=== PATIENT | female | born 1970 | race Caucasian/White ===

== ENCOUNTER 2017-05-19 23:31 | Emergency (ER) | payer BC ==
[~2017-05-19] VITALS: Ht 162.6 cm; Wt 87.8 kg
[~2017-05-19 23:31] MED LIST: BENA20 PO; BENT20TA PO; HYDR-3129 PO; HYDR-3533 PO; METO50TA PO; PROM25SU8 PO
[2017-05-19 23:45] VITALS: BP 117/93; PULSE 111; RESP 20; TEMP 98; O2SAT 97
== END 2017-05-20 00:50 | disposition left against medical advice (07) ==
LOC: PHED 23:31
DX: R10.9 Unspecified abdominal pain (principal); R11.10 Vomiting, unspecified
CPT/HCPCS: 99281

== ENCOUNTER 2017-05-22 09:53 | Emergency (ER) | payer BC ==
[~2017-05-22] VITALS: Ht 162.6 cm; Wt 88.0 kg
[2017-05-22 10:00] VITALS: BP 123/89; PULSE 97; RESP 14; TEMP 97.5; O2SAT 95
[2017-05-22] MEDS ORDERED: FISH1000 PO (10:23)
[2017-05-22] MEDS ORDERED: HYDR-3288 PO (10:23)
[2017-05-22] MEDS ORDERED: FURO1TAB62 PO (10:23)
[2017-05-22] MEDS ORDERED: DICY10 PO (10:23)
[2017-05-22] MEDS ORDERED: METO-309 PO (10:23)
--- NOTE | 2017-05-22 10:45 | PD ---
HPI Chief Complaint: Musculoskeletal Complaint Time Seen by Provider: 10:33 Travel History International Travel<30 days: No Contact w/Intl Traveler<30days: No Traveled to known affect area: No History of Present Illness HPI This 47-year-old female says she went to stand up this morning. She had tingling in her legs and she says her legs would not support her and she fell to the ground injuring her right leg. She says the feeling is coming back into her legs. She has a history of back pain with sciatica. Occasional tingling in her legs when she sits for a while. The sensation has returned to her legs. She is having pain in the right knee ankle and foot. She did not hit her head PFSH Past Medical History Anxiety: Yes Heart Rhythm Problems: Yes (HIGH HEART RATE) Cancer: No Cardiovascular Problems: Yes High Cholesterol: Yes Diminished Hearing: No Gastrointestinal Disorders: No GERD: Yes Genitourinary: No Headaches: Yes Hypertension: Yes Implanted Vascular Access Dvce: No Kidney Stones: Yes Musculoskeletal: No Neurologic: Yes Psychiatric: No Reproductive: No Respiratory: Yes Migraines: Yes Pneumonia: Yes Triglycerides - High: Yes Ulcer: Yes (GASTRIC) Tetanus Vaccination: Unknown Influenza Vaccination: No ?: Not : 1 Para: 1 Past Surgical History Abdominal Surgery: Yes (LAP BAND: 2005) Cardiac Surgery: Yes (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) Cholecystectomy: Yes (2011) Ear Surgery: No Endocrine Surgery: No Eye Surgery: No Genitourinary Surgery: No Gynecologic Surgery: Yes Hysterectomy: Yes Neurologic Surgery: No Oral Surgery: No Thoracic Surgery: No Tonsillectomy: Yes Other Surgery: Yes Social History Alcohol Use: No Tobacco Use: Yes (2 ppd) Substance Use: No Allergies-Medications (Allergen,Severity, Reaction): Coded Allergies: Tylenol #3 (Unverified Allergy, Intermediate, HEADACHE, 08/05/16) Morphine (Unverified Allergy, Mild, HEADACHE, 08/05/16) Penicillin (Verified Allergy, Unknown, THROAT CLOSES, 08/05/16) Reported Meds & Prescriptions Reported Meds & Active Scripts Active Reported Fish Oil ([place]-3 Fatty Acids) 1,000 Mg Cap 6,000 Mg PO DAILY Lopressor (Metoprolol Tartrate) 50 Mg Tab 50 Mg PO BID [place] (Hydrocodone-Acetaminophen) 7.5-325 mg Tab 1 Tab PO Q4H PRN Lasix (Furosemide) 20 Mg Tab 20 Mg PO TID Bentyl (Dicyclomine HCl) 10 Mg Cap 20 Mg PO BID Review of Systems General / Constitutional: No: Fever, Chills Eyes: No: Diploplia, Blurred Vision HENT: No: Headaches, Vertigo Cardiovascular: No: Chest Pain or Discomfort, Palpitations Respiratory: No: Cough, Shortness of Breath Gastrointestinal: No: Nausea, Vomiting Genitourinary: No: Urgency, Frequency Musculoskeletal: Positive: Myalgias, Arthralgias, Pain Skin: No Rash, No Itching Neurologic: Positive: Weakness, No: Dizziness Physical Exam Narrative GENERAL: [-] SKIN: Focused skin assessment warm/dry. HEAD: Atraumatic. Normocephalic. EYES: Pupils equal and round. No scleral icterus. No injection or drainage. ENT: No nasal bleeding or discharge. Mucous membranes pink and moist. NECK: Trachea midline. No JVD. GASTROINTESTINAL: Abdomen soft, non-tender, nondistended. Hepatic and splenic margins not palpable. MUSCULOSKELETAL: No obvious deformities. No clubbing. No cyanosis. No edema. There is tenderness of the knee. There is no obvious effusion. There is no instability noted. There is tenderness of the lateral aspect of the ankle and also the dorsum of the foot. There is some ecchymosis in this area and swelling. Dorsalis pedal pulses normal. There is good strength in the left foot NEUROLOGICAL: Awake and alert. No obvious cranial nerve deficits. Motor grossly within normal limits. Normal speech. PSYCHIATRIC: Appropriate mood and affect; insight and judgment normal. Data Data Last Documented VS Vital Signs Date Time Temp Pulse Resp B/P Pulse Ox O2 Delivery O2 Flow Rate FiO2 05/22/17 10:00 97.5 97 14 123/89 95 Room Air Orders Ankle, Complete ([id number]) (05/22/17 10:42) Foot, Complete ([id number]) (05/22/17 10:42) Knee, Complete (4vws) (05/22/17 10:42) Acetamin-Hydrocod 325-5 Mg ([place] 5-325 (05/22/17 12:00) Ondansetron Odt (Zofran Odt) (05/22/17 12:00) Splint Or Brace Apply/Monitor (05/22/17 11:52) Crutches (05/22/17 11:52) MDM Medical Decision Making Medical Screen Exam Complete: Yes Emergency Medical Condition: Yes Medical Record Reviewed: Yes Differential Diagnosis Differential includes contusion, fracture. Patient had weakness of the legs which has resolved. Both legs were weak and had tingling. There is no evidence of weakness or poor circulation now Narrative Course X-rays of the knee and ankle and foot are negative. Impression is multiple contusions Diagnosis Primary Impression: Foot sprain Qualified Code: S93.601A - Foot sprain, right, initial encounter Additional Impressions: Ankle sprain Qualified Code: S93.431A - Sprain of tibiofibular ligament of right ankle, initial encounter Contusion of knee Qualified Code: S80.01XA - Contusion of right knee, initial encounter Additional Instructions: Use crutches, avoid weightbearing, follow-up with orthopedic Scripts Ondansetron Odt (Zofran Odt)4 Mg Tab4 Mg SL Q6HR PRN (Nausea/Vomiting) #10 TAB Ref 0 Prov:Ok Go MD 05/22/17 Hydrocodone-Acetaminophen (Lortab)7.5-325 Mg Tab1 Tab PO Q4H PRN (PAIN) #20 TAB Ref 0 Prov:Ok Go MD 05/22/17 Disposition: 01 DISCHARGE HOME Condition: Stable Ok Go MD May 22, 2017 10:45
--- NOTE | 2017-05-22 11:25 | RADRPT ---
EXAM DATE/TIME: 05/22/2017 11:04 [facility] COMPARISON: No previous studies available for comparison. INDICATIONS : Right foot pain after falling MEDICAL HISTORY : None. SURGICAL HISTORY : None. ENCOUNTER: Initial ACUITY: 1 day PAIN SCORE: 10/10 LOCATION: Right lateral foot FINDINGS: Three view examination of the right foot demonstrates no soft tissue swelling, dislocation, or fractu re. The tarsal bones appear intact. The interphalangeal and metatarsophalangeal joints are intact. The calcaneus is intact. Bony mineralization is normal. CONCLUSION: Unremarkable examination of the right foot. Félix Blas MD on May 22, 2017 at 11:23 Board Certified Radiologist. This report was verified electronically.
--- NOTE | 2017-05-22 11:26 | RADRPT ---
EXAM DATE/TIME: 05/22/2017 11:06 [facility] COMPARISON: No previous studies available for comparison. INDICATIONS : Right ankle pain after falling MEDICAL HISTORY : None. SURGICAL HISTORY : None. ENCOUNTER: Initial ACUITY: 1 day PAIN SCORE: 10/10 LOCATION: Right lateral ankle FINDINGS: Three view exam was performed of the right ankle. The bony structures are in normal alignment. No e vidence of fracture, dislocation, or soft tissue swelling. The ankle mortise is intact. No radiopaq ue foreign bodies are seen. Bony mineralization is normal. CONCLUSION: Unremarkable examination of the right ankle. Félix Blas MD on May 22, 2017 at 11:24 Board Certified Radiologist. This report was verified electronically.
--- NOTE | 2017-05-22 11:26 | RADRPT ---
EXAM DATE/TIME: 05/22/2017 11:09 [facility] COMPARISON: No previous studies available for comparison. INDICATIONS : Right knee pain after falling MEDICAL HISTORY : None. SURGICAL HISTORY : None. ENCOUNTER: Initial ACUITY: 1 day PAIN SCORE: 10/10 LOCATION: Right anterior knee FINDINGS: Four view examination of the right knee demonstrates no evidence of fracture or dislocation. Bony mi neralization is normal. The articular surfaces are intact. The suprapatellar soft tissues have a no rmal configuration. CONCLUSION: Unremarkable examination of the right knee. Félix Blas MD on May 22, 2017 at 11:25 Board Certified Radiologist. This report was verified electronically.
[2017-05-22] MEDS ORDERED: ZOFR4TAB3 SL (12:00)
[2017-05-22] MEDS ORDERED: ACETAMINOPHEN/HYDROcodone 325 MG/5 MG TAB PO ONE (12:00)
[2017-05-22] MEDS ORDERED: ONDANSETRON ODT 4 MG TAB PO ONE (12:00)
[2017-05-22] MEDS ORDERED: HYDR-3534 PO (12:00)
[2017-05-22 12:30] VITALS: RESP 16
== END 2017-05-22 12:33 | disposition home or self-care (01) ==
LOC: PHEFT 09:53
DX: S93.601A Unspecified sprain of right foot, initial encounter (principal); S93.401A Sprain of unspecified ligament of right ankle, initial encounter; S80.01XA Contusion of right knee, initial encounter; W18.30XA Fall on same level, unspecified, initial encounter; Y93.89 Activity, other specified; Y92.9 Unspecified place or not applicable; I10 Essential (primary) hypertension; K21.9 Gastro-esophageal reflux disease without esophagitis; E78.00 Pure hypercholesterolemia, unspecified; Z87.442 Personal history of urinary calculi; Z98.84 Bariatric surgery status
CPT/HCPCS: 73564; 73610; 73630; 99284; E0113

== ENCOUNTER 2017-08-29 02:01 | Emergency (ER) | payer OTHER, BC ==
[~2017-08-29] VITALS: Ht 162.6 cm; Wt 98.7 kg
[~2017-08-29 02:01] MED LIST changes: -BENA20 PO; -BENT20TA PO; +DICY10 PO; +FISH1000 PO; +FURO1TAB62 PO; -HYDR-3129 PO; +HYDR-3288 PO; -HYDR-3533 PO; +HYDR-3534 PO; +METO-309 PO; -METO50TA PO; -PROM25SU8 PO; +ZOFR4TAB3 SL
[2017-08-29 02:03] VITALS: BP 139/86; PULSE 97; RESP 16; TEMP 97.5; O2SAT 99
[2017-08-29] MEDS ORDERED: IBUPROFEN 800 MG TAB PO ONE (02:30)
[2017-08-29] MEDS ORDERED: CYCLOBENZAPRINE HCL 10 MG TAB PO ONE (02:30)
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
[2017-08-29] MEDS ORDERED: SODIUM CHLORIDE 0.9% FLUSH 10 ML FLUSH IV FLUSH PRN (02:45)
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
[2017-08-29 03:06] LABS: AUTOMATED NEUTROPHIL # 3.8 TH/MM3 (1.8-7.7); BASOPHIL # 0.1 TH/MM3 (0-0.2); BASOPHIL % 0.7 % (0.0-2.0); EOSINOPHIL # 0.2 TH/MM3 (0-0.4); EOSINOPHIL % 2.7 % (0.0-4.0); HEMATOCRIT 38.1 % (35.0-46.0); HEMO FLAGS DIFF FINAL; LYMPH % 39.7 % (9.0-44.0); LYMPHOCYTE # 3.2 TH/MM3 (1.0-4.8); MEAN CELL VOLUME 98.2 FL (80.0-100.0); MEAN CORPUSCULAR HEMOGLOBIN 32.9 PG (27.0-34.0); MEAN CORPUSCULAR HGB CONC 33.5 % (32.0-36.0); MONO % 8.5 % (0.0-8.0); NEUT % 48.4 % (16.0-70.0); PLATELET COUNT 278 TH/MM3 (150-450); RED BLOOD COUNT 3.88 MIL/MM3 (4.00-5.30); RED CELL DISTRIBUTION WIDTH 12.9 % (11.6-17.2)
[2017-08-29 03:12] LABS: POTASSIUM 3.7 MEQ/L (3.5-5.1)
[2017-08-29 03:15] LABS: BICARBONATE 28.7 MEQ/L (21.0-32.0)
[2017-08-29] MEDS ORDERED: ONDANSETRON HCL 4 MG/2 ML VIAL IV PUSH ONE ×2 (03:15→04:30)
[2017-08-29 03:44] VITALS: BP 146/85; PULSE 85; RESP 16; O2SAT 99
[2017-08-29] MEDS ORDERED: HYDROmorphone HCL PF 0.5 MG/0.5 ML SYRINGE IV PUSH ONE ×2 (04:00→05:15)
[2017-08-29] MEDS ORDERED: IOHEXOL 350 MG/ML 10 ML VIAL (for RAD DIAG) IVCONTRAST ONE (04:25)
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
[2017-08-29 04:54] VITALS: BP 142/76; PULSE 88; RESP 16; O2SAT 98
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
[2017-08-29 05:38] VITALS: BP_SYST 142; BP_DIAS 76; BP_DIAS 88; PULSE 82; RESP 16; O2SAT 99
== END 2017-08-29 05:42 | disposition home or self-care (01) ==
LOC: PHED 02:01
DX: S09.90XA Unspecified injury of head, initial encounter (principal); S39.012A Strain of muscle, fascia and tendon of lower back, initial encounter; M54.2 Cervicalgia; M54.6 Pain in thoracic spine; M79.605 Pain in left leg; M79.642 Pain in left hand; I10 Essential (primary) hypertension; E78.5 Hyperlipidemia, unspecified; F17.200 Nicotine dependence, unspecified, uncomplicated; V89.2XXA Person injured in unspecified motor-vehicle accident, traffic, initial encounter; Z86.59 Personal history of other mental and behavioral disorders; Z86.79 Personal history of other diseases of the circulatory system; Z87.19 Personal history of other diseases of the digestive system; Z87.442 Personal history of urinary calculi; Z86.69 Personal history of other diseases of the nervous system and sense organs; G43.909 Migraine, unspecified, not intractable, without status migrainosus; D72.829 Elevated white blood cell count, unspecified; R94.31 Abnormal electrocardiogram [ECG] [EKG]; R07.9 Chest pain, unspecified
CPT/HCPCS: 70450; 71010; 71260; 72125; 72128; 72131; 73130; 74177; 80048; 83690; 84484; 85025; 85610; 85730; 93005; 96361; 96365; 96374; 96375; 96376; 99285; J1170; J1885; J2405; J2765; J7030; Q9967

== ENCOUNTER 2017-08-29 18:40 | Emergency (ER) | payer BC ==
[2017-08-29 18:42] VITALS: BP 144/76; PULSE 117; RESP 15; TEMP 97.4; O2SAT 98
== END 2017-08-29 19:26 | disposition left against medical advice (07) ==
LOC: NED 18:40
DX: G43.909 Migraine, unspecified, not intractable, without status migrainosus (principal); Z53.21 Procedure and treatment not carried out due to patient leaving prior to being seen by health care provider
CPT/HCPCS: 99281

== ENCOUNTER 2017-08-29 20:43 | Emergency (ER) | payer BC ==
[~2017-08-29] VITALS: Ht 162.6 cm; Wt 97.0 kg
[2017-08-29 20:50] VITALS: BP_SYST 127; BP_DIAS 79; BP_DIAS 97; PULSE 105; RESP 18; TEMP 98.5; O2SAT 99
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
[2017-08-29 21:10] LABS: AUTOMATED NEUTROPHIL # 11.5 TH/MM3 (1.8-7.7); BASOPHIL # 0.1 TH/MM3 (0-0.2); BASOPHIL % 0.5 % (0.0-2.0); EOSINOPHIL # 0.1 TH/MM3 (0-0.4); HEMOGLOBIN 12.2 GM/DL (11.6-15.3); LYMPH % 12.9 % (9.0-44.0); LYMPHOCYTE # 1.8 TH/MM3 (1.0-4.8); MEAN CELL VOLUME 98.1 FL (80.0-100.0); MEAN CORPUSCULAR HEMOGLOBIN 32.3 PG (27.0-34.0); MEAN PLATELET VOLUME 7.8 FL (7.0-11.0); MONO % 5.2 % (0.0-8.0); MONOCYTE # 0.7 TH/MM3 (0-0.9); NEUT % 80.4 % (16.0-70.0); PLATELET COUNT 286 TH/MM3 (150-450); RED BLOOD COUNT 3.78 MIL/MM3 (4.00-5.30); RED CELL DISTRIBUTION WIDTH 12.8 % (11.6-17.2); WHITE BLOOD COUNT 14.2 TH/MM3 (4.0-11.0)
[2017-08-29] MEDS ORDERED: SODIUM CHLOR 0.9% 1000 ML INJ 1,000 ML IV ONE (21:15)
[2017-08-29] MEDS ORDERED: METOCLOPRAMIDE INJ 10 MG in SODIUM CHLORIDE 0.9% INJ 50 ML IV ONE (21:15)
[2017-08-29] MEDS ORDERED: KETOROLAC TROMETHAMINE 30 MG/ML (IVP) VIAL IV PUSH ONE (21:15)
[2017-08-29 21:18] LABS: CHLORIDE 106 MEQ/L (98-107); SODIUM (NA) 141 MEQ/L (136-145)
[2017-08-29 21:21] LABS: BICARBONATE 27.3 MEQ/L (21.0-32.0); BLOOD UREA NITROGEN 17 MG/DL (7-18); CALCIUM 8.6 MG/DL (8.5-10.1); GLUCOSE,RANDOM 89 MG/DL (74-106); LIPASE 127 U/L (73-393)
[2017-08-29 21:24] LABS: CREATININE 0.62 MG/DL (0.50-1.00); GLOMERULAR FILTRATION RATE 104 ML/MIN (>89); INTERNATIONAL NORMALIZED RATIO 0.9 RATIO
[2017-08-29 21:29] LABS: TROPONIN I LESS THAN 0.02 NG/ML (0.02-0.05)
--- NOTE | 2017-08-29 22:08 | RADRPT ---
EXAM DATE/TIME: 08/29/2017 21:34 [facility] COMPARISON: CHEST PA & LAT, December 08, 2015, 0:54. INDICATIONS : Chest pain. MEDICAL HISTORY : Hypertension. SURGICAL HISTORY : Cholecystectomy. Hysterectomy. Gastric lap band. 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 ENCOUNTER: Initial ACUITY: 1 day PAIN SCORE: 9/10 LOCATION: Bilateral chest FINDINGS: There is slight cardiomegaly and perivascular pulmonary edema. Focal consolidation is not seen. CONCLUSION: Slight CHF. K. Ok Parry MD on August 29, 2017 at 22:06 Board Certified Radiologist. This report was verified electronically.
--- NOTE | 2017-08-29 22:17 | EKG ---
Date Performed: 08/29/2017 Time Performed: 20:49:25 PTAGE: 47 years EKG: SINUS TACHYCARDIA POSSIBLE LEFT ATRIAL ENLARGEMENT LOW QRS VOLTAGE IN PRECORDIAL LEADS INFE RIOR MYOCARDIAL INFARCTION ABNORMAL ECG NO PREVIOUS TRACING DOCTOR: Jah Damon Interpretating Date/Time 08/29/2017 22:17:10
[2017-08-29 22:30] VITALS: BP 111/72; PULSE 101; RESP 18; O2SAT 96
[2017-08-29 23:31] VITALS: BP 111/65
== END 2017-08-29 23:41 | disposition home or self-care (01) ==
LOC: PHED 20:43
DX: G43.909 Migraine, unspecified, not intractable, without status migrainosus (principal); D72.829 Elevated white blood cell count, unspecified; R94.31 Abnormal electrocardiogram [ECG] [EKG]; R07.9 Chest pain, unspecified; I10 Essential (primary) hypertension; E78.5 Hyperlipidemia, unspecified; F17.200 Nicotine dependence, unspecified, uncomplicated; Z86.59 Personal history of other mental and behavioral disorders; Z86.79 Personal history of other diseases of the circulatory system; Z87.19 Personal history of other diseases of the digestive system; Z87.442 Personal history of urinary calculi; Z86.69 Personal history of other diseases of the nervous system and sense organs
CPT/HCPCS: 71010; 80048; 83690; 84484; 85025; 85610; 85730; 93005; 96361; 96365; 96375; 99285; J1885; J2765; J7030

== ENCOUNTER 2017-10-10 20:20 | Emergency (ER) | payer BC, OTHER ==
[~2017-10-10 20:20] MED LIST changes: -FISH1000 PO; -HYDR-3534 PO
[2017-10-10 20:30] VITALS: BP 125/80; PULSE 94; RESP 16; TEMP 98.4; O2SAT 94; O2SAT 98
[2017-10-10 20:46] LABS: AUTOMATED NEUTROPHIL # 6.2 TH/MM3 (1.8-7.7); BASOPHIL # 0.1 TH/MM3 (0-0.2); BASOPHIL % 1.5 % (0.0-2.0); EOSINOPHIL # 0.2 TH/MM3 (0-0.4); EOSINOPHIL % 2.4 % (0.0-4.0); HEMATOCRIT 40.4 % (35.0-46.0); HEMO FLAGS DIFF FINAL; LYMPH % 27.8 % (9.0-44.0); LYMPHOCYTE # 2.8 TH/MM3 (1.0-4.8); MEAN CELL VOLUME 97.1 FL (80.0-100.0); MEAN CORPUSCULAR HEMOGLOBIN 33.1 PG (27.0-34.0); MEAN CORPUSCULAR HGB CONC 34.1 % (32.0-36.0); NEUT % 61.3 % (16.0-70.0); PLATELET COUNT 290 TH/MM3 (150-450); RED BLOOD COUNT 4.16 MIL/MM3 (4.00-5.30); RED CELL DISTRIBUTION WIDTH 13.5 % (11.6-17.2)
[2017-10-10 20:54] LABS: CHLORIDE 102 MEQ/L (98-107); POTASSIUM 3.6 MEQ/L (3.5-5.1); SODIUM (NA) 139 MEQ/L (136-145)
[2017-10-10 20:57] LABS: ANION GAP 8 MEQ/L (5-15); BLOOD UREA NITROGEN 18 MG/DL (7-18)
[2017-10-10 21:01] LABS: GLOMERULAR FILTRATION RATE 89 ML/MIN (>89)
[2017-10-10 21:04] LABS: CREATINE KINASE 54 U/L (26-192)
[2017-10-10 21:37] VITALS: BP 111/61; PULSE 84; RESP 16; O2SAT 98
--- NOTE | 2017-10-10 21:53 | PD ---
HPI Chief Complaint: Chest Pain Time Seen by Provider: 21:28 Travel History International Travel<30 days: No Contact w/Intl Traveler<30days: No Traveled to known affect area: No History of Present Illness HPI The patient is a 47-year-old female who complains of a sharp chest pain in the midsternal area for 2 days. She is also noted left eye swelling for 2 days. The chest pain is not radiating and not associated with nausea, vomiting, diaphoresis or diarrhea. She has not short of breath. She has a mild retro- orbital headache. The patient notes that there is some pain in the left eye when she looks to the left. PFSH Past Medical History Anxiety: Yes Heart Rhythm Problems: Yes (HIGH HEART RATE) Cancer: No Cardiovascular Problems: Yes High Cholesterol: Yes Diminished Hearing: No Gastrointestinal Disorders: No GERD: Yes Genitourinary: No Headaches: Yes Hypertension: Yes Implanted Vascular Access Dvce: No Kidney Stones: Yes Musculoskeletal: No Neurologic: Yes Psychiatric: No Reproductive: No Respiratory: Yes Migraines: Yes Pneumonia: Yes Triglycerides - High: Yes Ulcer: Yes (GASTRIC) Tetanus Vaccination: Unknown Influenza Vaccination: No ?: Not : 1 Para: 1 Past Surgical History Abdominal Surgery: Yes (LAP BAND: 2005) Cardiac Surgery: Yes (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) Cholecystectomy: Yes (2011) Ear Surgery: No Endocrine Surgery: No Eye Surgery: No Genitourinary Surgery: No Gynecologic Surgery: Yes Hysterectomy: Yes (Partial) Neurologic Surgery: No Oral Surgery: No Thoracic Surgery: No Tonsillectomy: Yes Other Surgery: Yes Social History Alcohol Use: No Tobacco Use: Yes (1/2 ppd/ vape) Substance Use: No Allergies-Medications (Allergen,Severity, Reaction): Coded Allergies: acetaminophen (Unverified Allergy, Intermediate, HEADACHE, 08/29/17) codeine (Unverified Allergy, Intermediate, HEADACHE, 08/29/17) morphine (Unverified Allergy, Mild, HEADACHE, 08/29/17) penicillin G (Unverified Allergy, Unknown, THROAT CLOSES, 08/29/17) Reported Meds & Prescriptions Reported Meds & Active Scripts Active Zofran Odt (Ondansetron Odt) 4 Mg Tab 4 Mg SL Q6HR PRN Reported Lopressor (Metoprolol Tartrate) 50 Mg Tab 50 Mg PO BID [place] (Hydrocodone-Acetaminophen) 7.5-325 mg Tab 1 Tab PO Q4H PRN Lasix (Furosemide) 20 Mg Tab 20 Mg PO TID Review of Systems Except as stated in HPI: all other systems reviewed are Neg Physical Exam Narrative GENERAL: The patient is anxious, alert, oriented 3 in minimal apparent distress. Her vital signs are normal. SKIN: Focused skin assessment warm/dry. HEAD: Atraumatic. Normocephalic. EYES: Pupils equal and round. No scleral icterus. No injection or drainage. ENT: No nasal bleeding or discharge. Mucous membranes pink and moist. There is barely visible left facial swelling present around the left eye. Cranial nerves II through VIII appear intact. Extraocular movements are normal. NECK: Trachea midline. No JVD. CARDIOVASCULAR: Regular rate and rhythm. No murmur appreciated. I can completely reproduce the patient's sharp pain by pressing on the chest wall where she perceives her pain in the midsternal area. RESPIRATORY: No accessory muscle use. Clear to auscultation. Breath sounds equal bilaterally. GASTROINTESTINAL: Abdomen soft, non-tender, nondistended. Hepatic and splenic margins not palpable. MUSCULOSKELETAL: No obvious deformities. No clubbing. No cyanosis. No edema. NEUROLOGICAL: Awake and alert. No obvious cranial nerve deficits. Motor grossly within normal limits. Normal speech. PSYCHIATRIC: Appropriate mood and affect; insight and judgment normal. DENTAL: No loose or chipped teeth. No malocclusion. The patient has complete upper dentures and there is no tenderness around the maxillary area. Data Data Last Documented VS Vital Signs Date Time Temp Pulse Resp B/P (MAP) Pulse Ox O2 Delivery O2 Flow Rate FiO2 10/10/17 21:37 84 16 111/61 (78) 98 Room Air 10/10/17 20:30 98.4 Orders Orders Electrocardiogram (10/10/17 20:38) Complete Blood Count With Diff (10/10/17 20:38) Basic Metabolic Panel (Bmp) (10/10/17 20:38) Ckmb (Isoenzyme) Profile (10/10/17 20:38) Troponin I (10/10/17 20:38) Iv Access Insert/Monitor (10/10/17 20:38) Ecg Monitoring (10/10/17 20:38) Oxygen Administration (10/10/17 20:38) Oximetry (10/10/17 20:38) Chest, Pa & Lat (10/10/17 ) Ct Brain W/O Iv Contrast(Rout) (10/10/17 21:39) Ketorolac Inj (Toradol Inj) (10/10/17 23:00) Labs Laboratory Tests Test 10/10/17 20:30 White Blood Count 10.0 TH/MM3 Red Blood Count 4.16 MIL/MM3 Hemoglobin 13.8 GM/DL Hematocrit 40.4 % Mean Corpuscular Volume 97.1 FL Mean Corpuscular Hemoglobin 33.1 PG Mean Corpuscular Hemoglobin Concent 34.1 % Red Cell Distribution Width 13.5 % Platelet Count 290 TH/MM3 Mean Platelet Volume 8.0 FL Neutrophils (%) (Auto) 61.3 % Lymphocytes (%) (Auto) 27.8 % Monocytes (%) (Auto) 7.0 % Eosinophils (%) (Auto) 2.4 % Basophils (%) (Auto) 1.5 % Neutrophils # (Auto) 6.2 TH/MM3 Lymphocytes # (Auto) 2.8 TH/MM3 Monocytes # (Auto) 0.7 TH/MM3 Eosinophils # (Auto) 0.2 TH/MM3 Basophils # (Auto) 0.1 TH/MM3 CBC Comment DIFF FINAL Differential Comment Blood Urea Nitrogen 18 MG/DL Creatinine 0.71 MG/DL Random Glucose 83 MG/DL Calcium Level 9.2 MG/DL Sodium Level 139 MEQ/L Potassium Level 3.6 MEQ/L Chloride Level 102 MEQ/L Carbon Dioxide Level 29.0 MEQ/L Anion Gap 8 MEQ/L Estimat Glomerular Filtration Rate 89 ML/MIN Total Creatine Kinase 54 U/L Troponin I LESS THAN 0.02 NG/ML MDM Medical Decision Making Medical Screen Exam Complete: Yes Emergency Medical Condition: Yes Medical Record Reviewed: Yes Interpretation(s) The CT brain shows no acute disease. The CBC is normal. The basic metabolic profile is normal and the cardiac enzymes are normal. The EKG shows no acute ST elevation or depression. It shows a ventricular rate which is sinus rhythm of 92. The chest x-ray shows poor inspiratory effort but also shows minimal pulmonary vascular congestion and mild cardiomegaly. Differential Diagnosis Dental infection, left facial swelling etiology undetermined, chest wall pain, pleuritic pain, gastrointestinal pain, esophageal pain, pneumonia, congestive heart failure Narrative Course The patient has left facial swelling etiology undetermined. Diagnosis Primary Impression: Facial swelling Additional Impression: Chest wall pain Disposition: 01 DISCHARGE HOME Condition: Stable Toby Hsu MD Oct 10, 2017 21:53
--- NOTE | 2017-10-10 22:14 | RADRPT ---
EXAM DATE/TIME: 10/10/2017 21:51 [facility] COMPARISON: CT BRAIN W/O CONTRAST, August 29, 2017, 3:16. INDICATIONS : Cephalgia. Left facial swelling and numbness. RADIATION DOSE: 64.18 CTDIvol (mGy) MEDICAL HISTORY : Hypertension. SURGICAL HISTORY : None. ENCOUNTER: Initial ACUITY: 2 days PAIN SCALE: 8/10 LOCATION: Left cranial TECHNIQUE: Multiple contiguous axial images were obtained of the head. Using automated exposure control and adj ustment of the mA and/or kV according to patient size, radiation dose was kept as low as reasonably a chievable to obtain optimal diagnostic quality images. DICOM format image data is available electro nically for review and comparison. FINDINGS: CEREBRUM: The ventricles are normal for age. No evidence of midline shift, mass lesion, hemorrhage or acute in farction. No extra-axial fluid collections are seen. POSTERIOR FOSSA: The cerebellum and brainstem are intact. The 4th ventricle is midline. The cerebellopontine angle i s unremarkable. EXTRACRANIAL: The visualized portion of the orbits is intact. SKULL: The calvaria is intact. No evidence of skull fracture. CONCLUSION: No acute disease. Quinn Gibbs MD on October 10, 2017 at 22:12 Board Certified Radiologist. This report was verified electronically.
--- NOTE | 2017-10-10 22:37 | EKG ---
Date Performed: 10/10/2017 Time Performed: 20:21:27 PTAGE: 47 years EKG: Sinus rhythm POSSIBLE LEFT ATRIAL ENLARGEMENT LOW QRS VOLTAGE IN PRECORDIAL LEADS BORDERLINE ECG PREVIOUS TRACING : 08/29/2017 20.49 Compared to prior tracing no significant change DOCTOR: Jah Damon Interpretating Date/Time 10/10/2017 22:36:58
[2017-10-10] MEDS ORDERED: KETOROLAC TROMETHAMINE 60 MG/2 ML (IM) VIAL IVP ONE (23:00)
--- NOTE | 2017-10-10 23:08 | RADRPT ---
EXAM DATE/TIME: 10/10/2017 21:17 [facility] COMPARISON: CHEST PA & LAT, December 08, 2015, 0:54. INDICATIONS : Chest pain and facial numbness for a week. MEDICAL HISTORY : Hypertension. SURGICAL HISTORY : Cholecystectomy. Hysterectomy. Gastric lap band. Thymoma removed from the apex of the heart with ster notomy. ENCOUNTER: Initial ACUITY: 1 week PAIN SCORE: 6/10 LOCATION: Bilateral chest FINDINGS: Median sternotomy wires are noted status post cardiac surgery. The heart is mildly enlarged but stabl e. Minimal pulmonary vascular congestion is noted. No focal alveolar consolidation is noted.. CONCLUSION: 1. Minimal pulmonary vascular congestion. 2. Mild cardiomegaly. Quinn Gibbs MD on October 10, 2017 at 23:05 Board Certified Radiologist. This report was verified electronically.
[2017-10-10] MEDS ORDERED: IBUP-232 PO (23:33)
[2017-10-10 23:50] VITALS: BP 121/76; PULSE 84; RESP 16; O2SAT 97
== END 2017-10-10 23:53 | disposition home or self-care (01) ==
LOC: PHED 20:20
DX: H57.8 Other specified disorders of eye and adnexa (principal); R07.89 Other chest pain; I10 Essential (primary) hypertension; F17.200 Nicotine dependence, unspecified, uncomplicated
CPT/HCPCS: 70450; 71020; 80048; 82550; 84484; 85025; 93005; 96374; 99285; J1885

== ENCOUNTER 2017-11-09 23:56 | Emergency (ER) | payer OTHER ==
[~2017-11-09] VITALS: Ht 162.6 cm; Wt 95.0 kg
[~2017-11-09 23:56] MED LIST changes: -DICY10 PO; +IBUP-232 PO
[2017-11-09 23:58] VITALS: BP 168/96; PULSE 99; RESP 16; TEMP 98.9; O2SAT 99
[2017-11-10] MEDS ORDERED: CLON1 PO (00:23)
[2017-11-10] MEDS ORDERED: DIAZEPAM 5 MG TAB PO ONE (01:15)
[2017-11-10] MEDS ORDERED: KETOROLAC TROMETHAMINE 60 MG/2 ML (IM) VIAL IM ONE (01:15)
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
[2017-11-10] MEDS ORDERED: MORPHINE SULFATE 2 MG/ML INJ IM ONE (02:00)
[2017-11-10] MEDS ORDERED: DIAZ5 PO (02:13)
== END 2017-11-10 02:38 | disposition home or self-care (01) ==
LOC: NEPE 23:56
DX: M62.838 Other muscle spasm (principal); S46.912D Strain of unspecified muscle, fascia and tendon at shoulder and upper arm level, left arm, subsequent encounter; I10 Essential (primary) hypertension; K21.9 Gastro-esophageal reflux disease without esophagitis; F41.9 Anxiety disorder, unspecified; E78.00 Pure hypercholesterolemia, unspecified; F17.290 Nicotine dependence, other tobacco product, uncomplicated; Z87.442 Personal history of urinary calculi; V43 Car occupant injured in collision with car, pick-up truck or van
CPT/HCPCS: 96372; 99284; J1885

== ENCOUNTER 2017-12-18 12:50 | Observation (INO) | payer OTHER ==
[~2017-12-18 12:50] MED LIST changes: +CLON1 PO; +DIAZ5 PO; -IBUP-232 PO; -ZOFR4TAB3 SL
[2017-12-18 12:54] VITALS: BP 114/72; PULSE 95; RESP 14; TEMP 97.6; O2SAT 97
--- NOTE | 2017-12-18 13:25 | PD ---
HPI Chief Complaint: Chest Pain Time Seen by Provider: 13:21 Travel History International Travel<30 days: No Contact w/Intl Traveler<30days: No Traveled to known affect area: No History of Present Illness HPI 47-year-old female patient with history of recent diagnosis of thyroid nodules currently being evaluated by endocrinology, presents to the ER today for several weeks history of intermittent substernal chest pains which she currently rates as 6 out of 10, shortness of breath, for which she does not know of any exacerbating alleviating factors. She denies any nausea, vomiting, or other issues. She also reports that she has some discomfort with swallowing but has been able to eat and drink fluids without issues. Modifying Factors: None Associated Signs & Symptoms: Chest pains, shortness of breath Risk Factors: None PFSH Past Medical History Anxiety: Yes Heart Rhythm Problems: Yes (HIGH HEART RATE) Cancer: No Cardiovascular Problems: Yes High Cholesterol: Yes Diminished Hearing: No Gastrointestinal Disorders: No GERD: Yes Genitourinary: No Headaches: Yes Hypertension: Yes Implanted Vascular Access Dvce: No Kidney Stones: Yes Musculoskeletal: No Neurologic: Yes Psychiatric: No Reproductive: No Respiratory: Yes Migraines: Yes Pneumonia: Yes Triglycerides - High: Yes Ulcer: Yes (GASTRIC) Tetanus Vaccination: < 5 Years Influenza Vaccination: No ?: Not : 1 Para: 1 Past Surgical History Abdominal Surgery: Yes (LAP BAND: 2005) Cardiac Surgery: Yes (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) Cholecystectomy: Yes (2011) Ear Surgery: No Endocrine Surgery: No Eye Surgery: No Genitourinary Surgery: No Gynecologic Surgery: Yes Hysterectomy: Yes (Partial) Neurologic Surgery: No Oral Surgery: No Thoracic Surgery: No Tonsillectomy: Yes Other Surgery: Yes Social History Alcohol Use: No Tobacco Use: Yes (vape without nicotine) Substance Use: No Allergies-Medications (Allergen,Severity, Reaction): Coded Allergies: acetaminophen (Unverified Allergy, Intermediate, HEADACHE, 12/18/17) codeine (Unverified Allergy, Intermediate, HEADACHE, 12/18/17) morphine (Unverified Allergy, Mild, HEADACHE, 12/18/17) penicillin G (Unverified Allergy, Unknown, THROAT CLOSES, 12/18/17) Reported Meds & Prescriptions Reported Meds & Active Scripts Active Reported Klonopin (Clonazepam) 1 Mg Tab 1 Mg PO Q6HR Lopressor (Metoprolol Tartrate) 50 Mg Tab 50 Mg PO BID [place] (Hydrocodone-Acetaminophen) 7.5-325 mg Tab 1 Tab PO Q4H PRN Lasix (Furosemide) 20 Mg Tab 20 Mg PO TID Review of Systems Except as stated in HPI: all other systems reviewed are Neg Physical Exam Narrative GENERAL: Well-developed middle-aged female patient currently in mild distress. Awake and oriented 3. SKIN: Focused skin assessment warm/dry. HEAD: Atraumatic. Normocephalic. EYES: Pupils equal and round. No scleral icterus. No injection or drainage. ENT: No nasal bleeding or discharge. Mucous membranes pink and moist. NECK: Trachea midline. No JVD. No palpable thyroid masses. CARDIOVASCULAR: Regular rate and rhythm. No murmur appreciated. RESPIRATORY: No accessory muscle use. Clear to auscultation. Breath sounds equal bilaterally. GASTROINTESTINAL: Abdomen soft, non-tender, nondistended. Hepatic and splenic margins not palpable. MUSCULOSKELETAL: No obvious deformities. No clubbing. No cyanosis. No edema. NEUROLOGICAL: Awake and alert. No obvious cranial nerve deficits. Motor grossly within normal limits. Normal speech. PSYCHIATRIC: Appropriate mood and affect; insight and judgment normal. Data Data Last Documented VS Vital Signs Date Time Temp Pulse Resp B/P (MAP) Pulse Ox O2 Delivery O2 Flow Rate FiO2 12/18/17 12:54 97.6 95 14 114/72 (86) 97 Orders Orders Electrocardiogram (12/18/17 13:21) Ckmb (Isoenzyme) Profile (12/18/17 13:21) Complete Blood Count With Diff (12/18/17 13:21) Comprehensive Metabolic Panel (12/18/17 13:21) D-Dimer (12/18/17 13:21) Magnesium (Mg) (12/18/17 13:21) Prothrombin Time / Inr (Pt) (12/18/17 13:21) Act Partial Throm Time (Ptt) (12/18/17 13:21) Troponin I (12/18/17 13:21) Chest, Single Ap (12/18/17 13:21) Ecg Monitoring (12/18/17 13:21) Bilateral Bp Monitoring (12/18/17 13:21) Iv Access Insert/Monitor (12/18/17 13:21) Oximetry (12/18/17 13:21) Oxygen Administration (12/18/17 13:21) Sodium Chloride 0.9% Flush (Ns Flush) (12/18/17 13:30) Thyroid Stimulating Hormone (12/18/17 13:21) Labs Laboratory Tests Test 12/18/17 13:13 White Blood Count 11.0 TH/MM3 Red Blood Count 4.09 MIL/MM3 Hemoglobin 13.7 GM/DL Hematocrit 40.1 % Mean Corpuscular Volume 97.9 FL Mean Corpuscular Hemoglobin 33.6 PG Mean Corpuscular Hemoglobin Concent 34.3 % Red Cell Distribution Width 13.3 % Platelet Count 315 TH/MM3 Mean Platelet Volume 8.0 FL Neutrophils (%) (Auto) 59.6 % Lymphocytes (%) (Auto) 30.3 % Monocytes (%) (Auto) 7.4 % Eosinophils (%) (Auto) 2.1 % Basophils (%) (Auto) 0.6 % Neutrophils # (Auto) 6.6 TH/MM3 Lymphocytes # (Auto) 3.3 TH/MM3 Monocytes # (Auto) 0.8 TH/MM3 Eosinophils # (Auto) 0.2 TH/MM3 Basophils # (Auto) 0.1 TH/MM3 CBC Comment DIFF FINAL Differential Comment Prothrombin Time 9.8 SEC Prothromb Time International Ratio 1.0 RATIO Activated Partial Thromboplast Time 28.2 SEC D-Dimer Quantitative (PE/DVT) 0.32 MG/L FEU Blood Urea Nitrogen 18 MG/DL Creatinine 0.80 MG/DL Random Glucose 78 MG/DL Total Protein 7.8 GM/DL Albumin 3.9 GM/DL Calcium Level 9.2 MG/DL Magnesium Level 2.3 MG/DL Alkaline Phosphatase 41 U/L Aspartate Amino Transf (AST/SGOT) 21 U/L Alanine Aminotransferase (ALT/SGPT) 19 U/L Total Bilirubin 0.1 MG/DL Sodium Level 140 MEQ/L Potassium Level 4.2 MEQ/L Chloride Level 106 MEQ/L Carbon Dioxide Level 27.6 MEQ/L Anion Gap 6 MEQ/L Estimat Glomerular Filtration Rate 78 ML/MIN Total Creatine Kinase 86 U/L Troponin I LESS THAN 0.02 NG/ML Thyroid Stimulating Hormone 3rd Gen 1.750 uIU/ML MDM Medical Decision Making Medical Screen Exam Complete: Yes Emergency Medical Condition: Yes Medical Record Reviewed: Yes Interpretation(s) EKG shows NSR, no ST elevation or depression, and no arrhythmias. No significant T-wave inversions. Laboratory Tests Test 12/18/17 13:13 Alkaline Phosphatase 41 U/L (45-117) Total Bilirubin 0.1 MG/DL (0.2-1.0) Estimat Glomerular Filtration Rate 78 ML/MIN (>89) Troponin I LESS THAN 0.02 NG/ML Last 24 hours Impressions Chest X-Ray 12/18/17 1321 Impressions: Service Date/Time: Monday, December 18, 2017 13:24 - CONCLUSION: 1. No acute cardiopulmonary disease. Cezar Escobedo MD Differential Diagnosis Chest pains, shortness of breath: Anxiety attack versus ACS versus dysrhythmias Narrative Course EKG did not show any signs of acute ST changes. Cardiac enzymes are negative. Lab work was otherwise unremarkable for any significant metabolic issues. She did not show any signs of dysrhythmias. Chest x-ray was unremarkable and d- dimer was negative. Patient admits that she uses "vapor" but denies any smoking. At this point, she was given albuterol as well. Considering the chest discomfort, cardiac issues cannot be completely rule out my plan would be to admit her to chest pain center for further evaluation as well. Diagnosis Primary Impression: Atypical chest pain Admitting Information Admitting Physician Requests: Admit Mehdi Escobar MD Dec 18, 2017 13:25
[2017-12-18] MEDS ORDERED: SODIUM CHLORIDE 0.9% FLUSH 10 ML FLUSH IVF PRN (13:30)
[2017-12-18 14:03] LABS: AUTOMATED NEUTROPHIL # 6.6 TH/MM3 (1.8-7.7); BASOPHIL # 0.1 TH/MM3 (0-0.2); BASOPHIL % 0.6 % (0.0-2.0); EOSINOPHIL # 0.2 TH/MM3 (0-0.4); EOSINOPHIL % 2.1 % (0.0-4.0); HEMATOCRIT 40.1 % (35.0-46.0); HEMOGLOBIN 13.7 GM/DL (11.6-15.3); LYMPH % 30.3 % (9.0-44.0); LYMPHOCYTE # 3.3 TH/MM3 (1.0-4.8); MEAN CELL VOLUME 97.9 FL (80.0-100.0); MEAN CORPUSCULAR HEMOGLOBIN 33.6 PG (27.0-34.0); MEAN CORPUSCULAR HGB CONC 34.3 % (32.0-36.0); MONO % 7.4 % (0.0-8.0); MONOCYTE # 0.8 TH/MM3 (0-0.9); NEUT % 59.6 % (16.0-70.0); PLATELET COUNT 315 TH/MM3 (150-450); RED BLOOD COUNT 4.09 MIL/MM3 (4.00-5.30); RED CELL DISTRIBUTION WIDTH 13.3 % (11.6-17.2)
[2017-12-18 14:14] LABS: PROTHROMBIN TIME - PATIENT 9.8 SEC (9.8-11.6)
[2017-12-18 14:16] LABS: D-DIMER 0.32 MG/L FEU (0.00-0.50)
[2017-12-18 14:32] LABS: ALT (GPT) 19 U/L (10-53)
--- NOTE | 2017-12-18 14:34 | RADRPT ---
EXAM DATE/TIME: 12/18/2017 13:24 [facility] COMPARISON: CHEST SINGLE AP, August 29, 2017, 21:34. INDICATIONS : Shortness of breath. MEDICAL HISTORY : Hypertension. SURGICAL HISTORY : Cholecystectomy. Hysterectomy. 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 ENCOUNTER: Initial ACUITY: 2 weeks PAIN SCORE: 0/10 LOCATION: Bilateral chest FINDINGS: No new focal pleural or parenchymal opacities. The cardiomediastinal contours are unremarkable. Oss eous structures are intact. CONCLUSION: 1. No acute cardiopulmonary disease. Cezar Escobedo MD on December 18, 2017 at 14:31 Board Certified Radiologist. This report was verified electronically.
[2017-12-18 14:42] LABS: ALBUMIN 3.9 GM/DL (3.4-5.0); ALKALINE PHOSPHATASE 41 U/L (45-117); AST (GOT) 21 U/L (15-37); BICARBONATE 27.6 MEQ/L (21.0-32.0); BLOOD UREA NITROGEN 18 MG/DL (7-18); CALCIUM 9.2 MG/DL (8.5-10.1); CHLORIDE 106 MEQ/L (98-107); GLOMERULAR FILTRATION RATE 78 ML/MIN (>89); GLUCOSE,RANDOM 78 MG/DL (74-106); MAGNESIUM 2.3 MG/DL (1.5-2.5); SODIUM (NA) 140 MEQ/L (136-145); TOTAL BILIRUBIN ADULT 0.1 MG/DL (0.2-1.0); TOTAL PROTEIN 7.8 GM/DL (6.4-8.2); TROPONIN I LESS THAN 0.02 NG/ML (0.02-0.05)
[2017-12-18] MEDS ORDERED: RESP: ALBUTEROL 2.5 MG/IPRATROPIUM 0.5 MG NEB (SCH) INH ONE (15:30)
[2017-12-18] MEDS ORDERED: ACETAMINOPHEN 500 MG CPLT PO PRN (16:15)
[2017-12-18] MEDS ORDERED: ONDANSETRON HCL 4 MG/2 ML VIAL IV PUSH PRN (16:15)
[2017-12-18] MEDS ORDERED: ACETAMINOPHEN/HYDROcodone 325 MG/7.5 MG TAB PO PRN (16:15)
--- NOTE | 2017-12-18 16:31 | HHI.HP ---
[facility] Primary Care Physician Jose Valladares D.O. Chief Complaint Chest pain History of Present Illness This is a 47-year-old female that presents to ED via private vehicle with her mother with a complaint of 2 weeks of intermittent chest discomfort. The discomfort may be sharp. She points to midline in her chest just below her neck as well as her aspect of the sternum. States it occurs when she takes a deep breath and even more so when she lies down and goes to sleep. She states she is awoken with this discomfort as well. Has not had a cough. No recent illness. At first she thought it may be related to recent thyroid biopsy. That was 3 weeks ago. She has been a time short of breath with her symptoms. She's had 2 episodes of emesis over the last 2 weeks but states she's had that also the past intermittently as she has had LAP-BAND about 8 years ago. Also has had to have endoscopy with dilatation secondary to strictures which were several years ago. History of having a thymoma removed approximately 2004. At that time she had a stress test which was normal. Otherwise she cannot recall prior cardiac workup. Review of Systems General: Patient denies fevers, chills recent, and recent travel HEENT: Patient denies headache, sore throat, difficulty swallowing. Cardiovascular: Has the chest discomfort as mentioned above. Denies sensation of heart beating rapidly or irregularly. No syncope. Denies diaphoresis. Respiratory: Has had shortness of breath and inspirational chest discomfort. Denies coughing wheezing or hemoptysis. GI: Patient denies had 2 episodes of emesis over the past 2 weeks. States it was nonbloody. Denies diarrhea, abdominal pain, bloody stools. Musculoskeletal: Has chronic back pain. Patient denies joint pain or edema. Denies calf pain or edema. Neurovascular: Patient denies numbness, tingling, weakness in extremities. Denies headache. Endocrine: Denies polyuria and polydipsia. Hematologic: Denies easy bruising. Skin: Denies rash or itching. Past Family Social History Allergies: Coded Allergies: acetaminophen (Unverified Allergy, Intermediate, HEADACHE, 12/18/17) codeine (Unverified Allergy, Intermediate, HEADACHE, 12/18/17) morphine (Unverified Allergy, Mild, HEADACHE, 12/18/17) penicillin G (Unverified Allergy, Unknown, THROAT CLOSES, 12/18/17) Past Medical History Hypertension which she states has improved after losing weight after lap band. Diabetes which she states also improved to where she is now diet controlled after having lap band with weight loss. Hyperlipidemia and is on fish oil. Chronic low back pain, anxiety, recent thyroid biopsy which she states she has had it repeated. Denies known CAD. Past Surgical History LAP-BAND, thymoma removed, cholecystectomy, hysterectomy, thyroid biopsy recently. Reported Medications Reported Meds & Active Scripts Active Reported Klonopin (Clonazepam) 1 Mg Tab 1 Mg PO Q6HR Lopressor (Metoprolol Tartrate) 50 Mg Tab 50 Mg PO BID [place] (Hydrocodone-Acetaminophen) 7.5-325 mg Tab 1 Tab PO Q4H PRN Lasix (Furosemide) 20 Mg Tab 20 Mg PO TID Active Ordered Medications Current Medications Medications (Trade) Dose Ordered Sig/Brenda Route Start Time Stop Time Status Last Admin (NS Flush) 2 ml UNSCH PRN IVF 12/18/17 13:30 (Tylenol) 500 mg Q4H PRN PO 12/18/17 16:15 UNV ([place] 7.5-325 Mg) 1 tab Q4H PRN PO 12/18/17 16:15 UNV (Zofran Inj) 4 mg Q6H PRN IV PUSH 12/18/17 16:15 UNV (Protonix) 40 mg DAILY PO 12/18/17 16:15 UNV (Aspirin) 325 mg DAILY PO 12/19/17 09:00 UNV Family History States that her sister has CAD but then when further questioning she believes she had a valve replaced and has a pacemaker but is not sure of ever needing a bypass or stents. Her mother has history of an GA at age 60 with stents. Social History Patient has been vaping the last 3 months but prior to that with smoke 1 pack of cigarettes daily for 20 years. Rarely has alcohol. Denies illicit drugs Physical Exam Vital Signs Vital Signs Date Time Temp Pulse Resp B/P (MAP) Pulse Ox O2 Delivery O2 Flow Rate FiO2 12/18/17 12:54 97.6 95 14 114/72 (86) 97 Physical Exam GENERAL: This is a well-nourished, well-developed patient, in no apparent distress. Patient speaks in clear complete sentences. Patient is pleasant. HEENT: Head is atraumatic and normocephalic. Neck is supple without lymphadenopathy and trachea is midline. No JVD or carotid bruits. CARDIOVASCULAR: Regular rate and rhythm without murmurs, gallops, or rubs. RESPIRATORY: Clear to auscultation. Breath sounds equal bilaterally. No wheezes , rales, or rhonchi. Chest wall is tender but not similar to the discomfort that brought her here. No use of accessory muscles. GASTROINTESTINAL: Abdomen is nontender, nondistended. Abdomen soft. No obvious pulsatile mass or bruit. No CVA tenderness. Strong femoral pulses bilaterally. Normal bowel sounds in all quadrants. MUSCULOSKELETAL: Patient is moving upper and lower extremities freely. No calf tenderness or edema, no Homans sign. Strong pulses in upper and lower extremities. NEUROLOGICAL: Patient is alert and oriented. Cranial nerves 2-12 are grossly intact. No focal deficits and speech is clear. SKIN: No rash and turgor is normal. Laboratory Laboratory Tests Test 12/18/17 13:13 White Blood Count 11.0 Red Blood Count 4.09 Hemoglobin 13.7 Hematocrit 40.1 Mean Corpuscular Volume 97.9 Mean Corpuscular Hemoglobin 33.6 Mean Corpuscular Hemoglobin Concent 34.3 Red Cell Distribution Width 13.3 Platelet Count 315 Mean Platelet Volume 8.0 Neutrophils (%) (Auto) 59.6 Lymphocytes (%) (Auto) 30.3 Monocytes (%) (Auto) 7.4 Eosinophils (%) (Auto) 2.1 Basophils (%) (Auto) 0.6 Neutrophils # (Auto) 6.6 Lymphocytes # (Auto) 3.3 Monocytes # (Auto) 0.8 Eosinophils # (Auto) 0.2 Basophils # (Auto) 0.1 CBC Comment DIFF FINAL Differential Comment Prothrombin Time 9.8 Prothromb Time International Ratio 1.0 Activated Partial Thromboplast Time 28.2 D-Dimer Quantitative (PE/DVT) 0.32 Blood Urea Nitrogen 18 Creatinine 0.80 Random Glucose 78 Total Protein 7.8 Albumin 3.9 Calcium Level 9.2 Magnesium Level 2.3 Alkaline Phosphatase 41 Aspartate Amino Transf (AST/SGOT) 21 Alanine Aminotransferase (ALT/SGPT) 19 Total Bilirubin 0.1 Sodium Level 140 Potassium Level 4.2 Chloride Level 106 Carbon Dioxide Level 27.6 Anion Gap 6 Estimat Glomerular Filtration Rate 78 Total Creatine Kinase 86 Troponin I LESS THAN 0.02 Thyroid Stimulating Hormone 3rd Gen 1.750 Result Diagram: 12/18/17 1313 12/18/17 1313 Imaging Last 48 hours Impressions Chest X-Ray 12/18/17 1321 Impressions: Service Date/Time: Monday, December 18, 2017 13:24 - CONCLUSION: 1. No acute cardiopulmonary disease. Cezar Escobedo MD Course Initial EKG has sinus rhythm rate of [address] segment depressions or elevations. Caprini VTE Risk Assessment Caprini VTE Risk Assessment: No/Low Risk (score <= 1) Caprini Risk Assessment Model Point Value = 1 Point Value = 2 Point Value = 3 Point Value = 5 Age 41-60 Minor surgery BMI > 25 kg/m2 Swollen legs Varicose veins or History of unexplained or recurrent spontaneous Oral contraceptives or hormone replacement Sepsis (< 1 month) Serious lung disease, including pneumonia (< 1 month) Abnormal pulmonary function Acute myocardial infarction Congestive heart failure (< 1 month) History of inflammatory bowel disease Medical patient at bed rest Age 61-74 Arthroscopic surgery Major open surgery (> 45 min) Laparoscopic surgery (> 45 min) Malignancy Confined to bed (> 72 hours) Immobilizing plaster cast Central venous access Age >= 75 History of VTE Family history of VTE Factor V Leiden Prothrombin [id number] Lupus anticoagulant Anticardiolipin antibodies Elevated serum homocysteine Heparin-induced thrombocytopenia Other congenital or acquired thrombophilia Stroke (< 1 month) Elective arthroplasty Hip, pelvis, or leg fracture Acute spinal cord injury (< 1 month) Prophylaxis Regimen Total Risk Factor Score Risk Level Prophylaxis Regimen 0-1 Low Early ambulation 2 Moderate Order ONE of the following: *Sequential Compression Device (SCD) *Heparin 5000 units SQ BID 3-4 Higher Order ONE of the following medications: *Heparin 5000 units SQ TID *Enoxaparin/Lovenox 40 mg SQ daily (WT < 150 kg, CrCl > 30 mL/min) *Enoxaparin/Lovenox 30 mg SQ daily (WT < 150 kg, CrCl > 10-29 mL/min) *Enoxaparin/Lovenox 30 mg SQ BID (WT < 150 kg, CrCl > 30 mL/min) AND/OR *Sequential Compression Device (SCD) 5 or more Highest Order ONE of the following medications: *Heparin 5000 units SQ TID (Preferred with Epidurals) *Enoxaparin/Lovenox 40 mg SQ daily (WT < 150 kg, CrCl > 30 mL/min) *Enoxaparin/Lovenox 30 mg SQ daily (WT < 150 kg, CrCl > 10-29 mL/min) *Enoxaparin/Lovenox 30 mg SQ BID (WT < 150 kg, CrCl > 30 mL/min) AND *Sequential Compression Device (SCD) Assessment and Plan Assessment and Plan * Chest pain: Patient will have serial cardiac enzymes and EKGs for ruling out purposes. She will be seen by Dr. Donnelly in the morning and the chest pain center. Patient will likely have a Lexiscan if she rules out. She will be discharged home if her stress test was nonischemic with instructions to follow-up with PCP. Return to ED for interval issues. * Hypertension: Continue current medication. * Chronic back pain: Continue current medication. * Anxiety: Continue current medication. * Tobacco abuse: Patient was counseled importance of tobacco cessation. Patient is stable at this time. She is agreeable to this plan. Saeed Ramachandran Dec 18, 2017 16:31
[2017-12-18] MEDS: PANTOPRAZOLE SOD 40 MG DELAYED RELEASE TAB PO SCH (16:38)
[2017-12-18 17:12] VITALS: BP 116/74; PULSE 96; RESP 18; TEMP 97.4; O2SAT 97
[2017-12-18 17:24] LABS: TROPONIN I LESS THAN 0.02 NG/ML (0.02-0.05)
[2017-12-18] MEDS: FUROSEMIDE 20 MG TAB PO SCH (17:25)
[2017-12-18 17:29] VITALS: PULSE 96
[2017-12-18] MEDS ORDERED: clonazePAM 1 MG TAB PO SCH (18:00)
[2017-12-18] MEDS: ACETAMINOPHEN/HYDROcodone 325 MG/7.5 MG TAB PO PRN ×2 (18:40→23:16)
[2017-12-18] MEDS: clonazePAM 1 MG TAB PO PRN ×2 (18:40→23:10)
[2017-12-18] MEDS: METOPROLOL TARTRATE 50 MG TAB PO SCH (19:45)
[2017-12-18 20:09] VITALS: BP 107/61; PULSE 98; RESP 16; TEMP 97.7; O2SAT 98
[2017-12-18 20:43] LABS: TROPONIN I LESS THAN 0.02 NG/ML (0.02-0.05)
[2017-12-19 00:02] VITALS: BP 107/62; PULSE 89; RESP 20; TEMP 97.7; O2SAT 92
[2017-12-19 03:21] VITALS: BP 94/52; PULSE 80; RESP 20; TEMP 97.7; O2SAT 94
[2017-12-19] MEDS: ACETAMINOPHEN/HYDROcodone 325 MG/7.5 MG TAB PO PRN ×2 (04:54→08:31)
[2017-12-19 08:28] VITALS: BP 106/70; PULSE 90; RESP 18; TEMP 97.5; O2SAT 97
[2017-12-19] MEDS: FUROSEMIDE 20 MG TAB PO SCH (08:30)
[2017-12-19] MEDS: PANTOPRAZOLE SOD 40 MG DELAYED RELEASE TAB PO SCH (08:30)
[2017-12-19] MEDS ORDERED: RESP: ALBUTEROL 2.5 MG/IPRATROPIUM 0.5 MG NEB (SCH) INH ONE (09:00)
[2017-12-19] MEDS ORDERED: ASPIRIN 325 MG TAB PO SCH (09:00)
[2017-12-19] MEDS ORDERED: REGADENOSON INJ 0.4 MG/5 ML SYR ONE (09:55)
[2017-12-19] MEDS: clonazePAM 1 MG TAB PO PRN (11:03)
[2017-12-19] MEDS: METOPROLOL TARTRATE 50 MG TAB PO SCH (11:03)
--- NOTE | 2017-12-19 11:10 | RADRPT ---
EXAM DATE/TIME: 12/19/2017 08:48 [facility] COMPARISON: No previous studies available for comparison. INDICATIONS : Chest pain for 2 weeks. Angina. DOSE: 27.3 mCi Tc99m Myoview at stress. 8.8 mCi Tc99m Myoview at rest. 0.4 mg Lexiscan STRESS SYMPTOMS: Chest pain and dyspnea. EJECTION FRACTION: 63% MEDICAL HISTORY : Hypertension. SURGICAL HISTORY : Hysterectomy. Lap band and thymoma removal. ENCOUNTER: Initial ACUITY: 2 weeks PAIN SCALE: 3/10 LOCATION: Bilateral chest TECHNIQUE: The patient underwent pharmacologic stress with infusion of prescribed dose. Continuous ECG tracing was monitored during stress. Gated SPECT imaging was performed after stress and conventional SPECT i maging was performed at rest. The examination was performed on a SPECT/CT scanner, both attenuation and non-corrected datasets were reviewed. FINDINGS: DISTRIBUTION: The maximum perfused segment at stress is in the lateral wall. PERFUSION STUDY: The pattern of perfusion at stress is within normal limits. GATED STUDY: There is intact wall motion and thickening without hypokinetic or dyskinetic segments. CONCLUSION: No reversible defects observed to suggest acute ischemia. RISK CATEGORY: Low Malcom Walsh Jr., MD on December 19, 2017 at 11:01 Board Certified Radiologist. This report was verified electronically.
[2017-12-19] MEDS ORDERED: RESP: ALBUTEROL 2.5 MG/IPRATROPIUM 0.5 MG NEB (PRN) INH (12:00)
--- NOTE | 2017-12-19 12:06 | HHI.DCPOC ---
Discharge Care Plan Diagnosis: (1) Atypical chest pain (2) Hypertension (3) Hyperlipidemia (4) Tobacco abuse Goals to Promote Your Health * To prevent worsening of your condition and complications * To maintain your health at the optimal level Directions to Meet Your Goals Take your medications as prescribed Follow your dietary instruction Follow activity as directed Keep your appointments as scheduled Take your immunizations and boosters as scheduled If your symptoms worsen call your PCP, if no PCP go to Urgent Care Center or Emergency Room Smoking is Dangerous to Your Health. Avoid second hand smoke Call the 24-hour hour crisis hotline for domestic abuse at [facility] Ramachandran Dec 19, 2017 12:06
[2017-12-19 12:10] VITALS: BP 112/75; PULSE 83
--- NOTE | 2017-12-19 18:01 | TR ---
Date Performed: 12/19/2017 Time Performed: 09:54:51 DOCTOR: Iris Donnelly DRUG LIST: CLINICAL HISTORY: REASON FOR TEST: REASON FOR ENDING: OBSERVATION: CONCLUSION: Lexiscan stress test was performed under standard four minute protocol. Radionuclid e was injected one minute prior to ending the test. No electrocardiographic abormalities were present to suggest ischemia. Nuclear imaging and interpretation are pending. COMMENTS:
--- NOTE | 2017-12-19 18:09 | EKG ---
Date Performed: 12/18/2017 Time Performed: 20:13:19 PTAGE: 47 years EKG: Sinus rhythm NORMAL ECG Since PREVIOUS TRACING , no significant change noted PREVIOUS TRACIN12/18/2017 16.29 DOCTOR: Iris Donnelly Interpretating Date/Time 12/19/2017 18:06:53
--- NOTE | 2017-12-19 18:10 | EKG ---
Date Performed: 12/18/2017 Time Performed: 16:29:46 PTAGE: 47 years EKG: Sinus rhythm POSSIBLE ANTERIOR MYOCARDIAL INFARCTION BORDERLINE ECG Since PREVIOUS TRACING , no significant change noted PREVIOUS TRACIN12/18/2017 13.09 DOCTOR: Iris Donnelly Interpretating Date/Time 12/19/2017 18:08:12
--- NOTE | 2017-12-19 18:11 | EKG ---
Date Performed: 12/18/2017 Time Performed: 13:09:50 PTAGE: 47 years EKG: Sinus rhythm POSSIBLE ANTERIOR MYOCARDIAL INFARCTION BORDERLINE ECG Since PREVIOUS TRACING , no significant change noted PREVIOUS TRACIN10/10/2017 20.21 DOCTOR: Iris Donnelly Interpretating Date/Time 12/19/2017 18:09:20
== END 2017-12-19 12:49 | disposition home or self-care (01) ==
LOC: NEPE 12:50 → NEDA 15:30 → NEPGCP 16:50
PROVIDERS: ADMIT Internal Medicine Cardiovascular Disease; ATTEND Internal Medicine Cardiovascular Disease
DX: R07.89 Other chest pain (principal); I10 Essential (primary) hypertension; F41.9 Anxiety disorder, unspecified; R06.02 Shortness of breath; R11.10 Vomiting, unspecified; E11.9 Type 2 diabetes mellitus without complications; E78.00 Pure hypercholesterolemia, unspecified; K21.9 Gastro-esophageal reflux disease without esophagitis; I20.9 Angina pectoris, unspecified; M54.5 Low back pain; G89.29 Other chronic pain; Z79.899 Other long term (current) drug therapy; Z98.84 Bariatric surgery status; Z88.0 Allergy status to penicillin; Z88.5 Allergy status to narcotic agent; Z88.6 Allergy status to analgesic agent
CPT/HCPCS: 71045; 78452; 80053; 82550; 83735; 84443; 84484; 85025; 85379; 85610; 85730; 93005; 93017; 94664; 99285; A9502; G0378; J2785